=== PATIENT | female | born 1975 | race African-American/Black ===

== ENCOUNTER 2021-08-31 11:59 | Emergency (ER) | payer BC, OTHER ==
[2021-08-31] MEDS ORDERED: diphenhydrAMINE 50 MG/ML VIAL ONE (13:43)
[2021-08-31] MEDS ORDERED: Metoclopramide HCl 10 MG/2 ML VIAL ONE (13:43)
[2021-08-31] MEDS ORDERED: Ketorolac Tromethamine 30 MG/ML VIAL ONE (13:43)
== END 2021-08-31 15:12 | disposition home or self-care (01) ==
LOC: CSHERS 11:59
DX: R51.9 Headache, unspecified (principal); I10 Essential (primary) hypertension
CPT/HCPCS: 96374; 96375; J1200; J1885; J2765

== ENCOUNTER 2023-06-08 15:27 | Outpatient (CLI) | payer BC | END 2023-06-08 15:28 | disposition home or self-care (01) | LOC: CSHMAMMO 15:27 | PROVIDERS: ATTEND Family Medicine | DX: Z12.31 Encounter for screening mammogram for malignant neoplasm of breast (principal); Z91.89 Other specified personal risk factors, not elsewhere classified | CPT/HCPCS: 77063; 77067 ==

== ENCOUNTER 2024-02-07 14:43 | Outpatient (CLI) | payer BC | END 2024-02-07 14:44 | disposition home or self-care (01) | LOC: CSHULT 14:43 | PROVIDERS: ATTEND Family Medicine | DX: D25.9 Leiomyoma of uterus, unspecified (principal) | CPT/HCPCS: 76856 ==

== ENCOUNTER 2024-05-18 08:52 | Outpatient (CLI) | payer BC | END 2024-05-18 08:53 | disposition home or self-care (01) | LOC: CSHLAB 08:52 | PROVIDERS: ATTEND Obstetrics & Gynecology | DX: Z01.818 Encounter for other preprocedural examination (principal); N92.1 Excessive and frequent menstruation with irregular cycle | CPT/HCPCS: 84703; 85027; 86850; 86900; 86901; 93005; 93010 ==